=== PATIENT | male | born 1995 | race Caucasian/White ===

== ENCOUNTER 2016-07-06 07:42 | Emergency (ER) | payer BC ==
[2016-07-06 08:07] VITALS: BP 127/61
[2016-07-06] MEDS ORDERED: Sodium Chloride 0.9% 1,000 ML IV ONE (08:15)
[2016-07-06] MEDS ORDERED: Ondansetron 4 MG/2 ML SDV IVPUSH ONE (08:15)
--- NOTE | 2016-07-06 08:35 | EDM.PDOC ---
ED HPI ENT - General Chief Complaint: Fever Stated Complaint: SICK WITH FEVER Time Seen by Provider: 07/06/16 07:45 - History of Present Illness INITIAL COMMENTS - FREE TEXT/NARRATIVE: History of present illness: [20 yo male with four day history of fever, chills, productive cough, sore throat, nausea, vomiting, decreased appetite. He denies abdominal pain, dysuria , frequency, urgency, sob, wheezing, ear ache. muscle aches, syncope or other pertinent symptoms. He does not have sick contacts. He did not recieve flu vaccine. He quit smoking one month ago. He does not drink or use illicit drugs. ] Review of systems: As per history of present illness and below otherwise all systems reviewed and negative. Past medical history: As per history of present illness and as reviewed below otherwise noncontributory. Surgical history: As per history of present illness and as reviewed below otherwise noncontributory. Social history: No reported history of drug or alcohol abuse. Family history: As per history of present illness and as reviewed below otherwise noncontributory. Physical exam: General: Well developed, well nourished in NAD HEENT: Atraumatic, normocephalic, pupils reactive, negative for conjunctival pallor or scleral icterus, mucous membranes moist, throat erythema, neck supple , nontender, trachea midline. TM clear bilaterally. Lungs: Clear to auscultation, breath sounds equal bilaterally, chest nontender. Heart: S1S2, regular, negative for clicks, rubs, or JVD. Abdomen: Soft, nondistended, nontender. Negative for masses or hepatosplenomegaly. Negative for costovertebral tenderness. Pelvis: Stable nontender. Genitourinary: Deferred. Rectal: Deferred. Extremities: Atraumatic, negative for cords or calf pain. Neurovascular unremarkable. Neuro: Awake, alert, oriented. Cranial nerves II through XII unremarkable. Cerebellum unremarkable. Motor and sensory unremarkable throughout. Exam nonfocal. Diagnostics: [cbc, cmp, amylase , lipase, strep, CXR: unremarkable. ] Therapeutics: [IVF] Impression: [bronchitis] Plan: [Increase hydration Phengran with codiene for symptom relief. Advised no driving or operating machinery. f/u with PCP in 1 week.] Definitive disposition and diagnosis as appropriate pending reevaluation and review of above. - Related Data Allergies/ADRs: Allergies Allergy/AdvReac Type Severity Reaction Status Date / Time No Known Allergies Allergy Verified 07/06/16 08:03 Home Meds: Home Meds . [No Known Home Meds] 07/06/16 [History] Past Medical History HEENT History: Reports: None Cardiovascular History: Reports: None Respiratory History: Reports: None Gastrointestinal History: Reports: None Genitourinary History: Reports: None Musculoskeletal History: Reports: None Neurological History: Reports: None Psychiatric History: Reports: None Endocrine/Metabolic History: Reports: None Hematologic History: Reports: None Immunologic History: Reports: None Oncologic (Cancer) History: Reports: None Dermatologic History: Reports: None - Infectious Disease History Infectious Disease History: Reports: None - Past Surgical History HEENT Surgical History: Reports: Other (see below) Other HEENT Surgeries/Procedures: tube in ears Musculoskeletal Surgical History: Reports: Other (see below) Other Musculoskeletal Surgeries/Procedures:: right hand surgery Social & Family History - Family History Family Medical History: Noncontributory - Tobacco Use Smoking Status *Q: Former Smoker - Caffeine Use Caffeine Use: Reports: Tea - Recreational Drug Use Recreational Drug Use: No ED ROS ENT - Review of Systems Review Of Systems: See Below (See history of present illness) ED EXAM, ENT - Physical Exam Exam: See Below (See history of present illness) Course - Vital Signs Last Recorded V/S: Last Vital Signs Temp 99.8 F 07/06/16 08:04 Pulse 108 H 07/06/16 08:04 Resp 18 07/06/16 08:04 BP 127/61 07/06/16 08:04 Pulse Ox 96 07/06/16 08:04 - Orders/Labs/Meds Orders: Active Orders 24 hr Category Date Time Status CULTURE STREP A CONFIRMATION [RM] Stat Lab 07/06/16 09:05 Results STREP SCRN A RAPID W CULT CONF [RM] Stat Lab 07/06/16 09:05 Results UA W/MICROSCOPIC [URIN] Stat Lab 07/06/16 09:31 Received Labs: Laboratory Tests 07/06/16 07/06/16 Range/Units 08:27 08:27 WBC 7.00 (4.0-11.0) K/uL RBC 4.76 (4.50-5.90) M/uL Hgb 14.1 (13.0-17.0) g/dL Hct 42.0 (38.0-50.0) % MCV 88.2 (80.0-98.0) fL MCH 29.6 (27.0-32.0) pg MCHC 33.6 (31.0-37.0) g/dL RDW Std Deviation 40.6 (28.0-62.0) fl RDW Coeff of Naomi 13 (11.0-15.0) % Plt Count 128 L (150-400) K/uL MPV 10.50 (7.40-12.00) fL Neut % (Auto) 82.1 H (48.0-80.0) % Lymph % (Auto) 11.4 L (16.0-40.0) % [place] % (Auto) 6.4 (0.0-15.0) % Eos % (Auto) 0.0 (0.0-7.0) % Baso % (Auto) 0.1 (0.0-1.5) % Neut # (Auto) 5.7 (1.4-5.7) K/uL Lymph # (Auto) 0.8 (0.6-2.4) K/uL [place] # (Auto) 0.5 (0.0-0.8) K/uL Eos # (Auto) 0.0 (0.0-0.7) K/uL Baso # (Auto) 0.0 (0.0-0.1) K/uL Nucleated RBC % 0.0 /100WBC Nucleated RBCs # 0 K/uL Sodium 139 (136-146) mmol/L Potassium 4.5 (3.5-5.1) mmol/L Chloride 104 (98-110) mmol/L Carbon Dioxide 25 (21-31) mmol/L BUN 11 (6.0-23.0) mg/dL Creatinine 1.0 (0.6-1.5) mg/dL Est Cr Clr Drug Dosing 127.51 mL/min Estimated GFR (MDRD) > 60.0 ml/min Glucose 105 (60-110) mg/dL Calcium 9.3 (8.8-10.8) mg/dL Total Bilirubin 0.7 (0.1-1.5) mg/dL AST 19 (5-40) IU/L ALT 14 (8-54) IU/L Alkaline Phosphatase 68 (40-150) Total Protein 7.0 (6.0-8.0) g/dL Albumin 4.6 (3.5-5.0) g/dL Globulin 2.4 (2.0-3.5) g/dL Albumin/Globulin Ratio 1.9 (1.3-2.8) Amylase 58 (10-90) U/L Lipase 12 (7-80) U/L Meds: Medications Discontinued Medications Generic Name Dose Route Start Last Admin Trade Name Stan PRN Reason Stop Dose Admin Sodium Chloride 1,000 mls @ 999 mls/hr 07/06/16 08:15 07/06/16 08:35 Normal Saline IV 07/06/16 09:15 999 mls/hr STAT ONE Administration Ondansetron HCl 4 mg 07/06/16 08:15 07/06/16 08:35 Zofran IVPUSH 07/06/16 08:16 4 mg ONETIME ONE Administration Departure - Departure Time of Disposition: 09:42 Disposition: Home, Self-Care 01 Condition: good Clinical Impression: Bronchitis Referrals: PCP,None [Primary Care Provider] - Forms: ED Department Discharge Additional Instructions: The following information is given to patients seen in the emergency department who are being discharged to home. This information is to outline your options for follow-up care. We provide all patients seen in our emergency department with a follow-up referral. The need for follow-up, as well as the timing and circumstances, are variable depending upon the specifics of your emergency department visit. If you don't have a primary care physician on staff, we will provide you with a referral. We always advise you to contact your personal physician following an emergency department visit to inform them of the circumstance of the visit and for follow-up with them and/or the need for any referrals to a consulting specialist. The emergency department will also refer you to a specialist when appropriate. This referral assures that you have the opportunity for follow-up care with a specialist. All of these measure are taken in an effort to provide you with optimal care, which includes your follow-up. Under all circumstances we always encourage you to contact your private physician who remains a resource for coordinating your care. When calling for follow-up care, please make the office aware that this follow-up is from your recent emergency room visit. If for any reason you are refused follow-up, please contact the [facility] Emergency Department at and asked to speak to the emergency department charge nurse. - My Orders Last 24 Hours: My Active Orders 07/06/16 09:05 CULTURE STREP A CONFIRMATION [RM] Stat STREP SCRN A RAPID W CULT CONF [RM] Stat 07/06/16 09:31 UA W/MICROSCOPIC [URIN] Stat - Assessment/Plan Last 24 Hours: My Active Orders 07/06/16 09:05 CULTURE STREP A CONFIRMATION [RM] Stat STREP SCRN A RAPID W CULT CONF [RM] Stat 07/06/16 09:31 UA W/MICROSCOPIC [URIN] Stat
[2016-07-06 09:02] LABS: CHLORIDE,CL 104 mmol/L (98-110); SODIUM,NA 139 mmol/L (136-146)
--- NOTE | 2016-07-06 09:34 | CR ---
EXAMINATION: Two-view chest (PA and Lateral views). HISTORY: Cough and fever. FINDINGS: The trachea is midline. The cardiomediastinal silhouette is within normal limits. No pulmonary infil trates, effusions or pneumothorax. Osseous structures appear unremarkable. IMPRESSION: No acute cardiopulmonary process.
== END 2016-07-06 09:52 | disposition home or self-care (01) ==
LOC: MW.ED 07:42
DX: J40 Bronchitis, not specified as acute or chronic (principal); Z87.891 Personal history of nicotine dependence
CPT/HCPCS: 36415; 71020; 80053; 81001; 82150; 83690; 85025; 87081; 87880; 96361; 96374; 99283; J2405; J7040; 99284

== ENCOUNTER 2017-02-21 10:56 | Emergency (ER) | payer BC ==
[2017-02-21] MEDS ORDERED: Ketorolac 60 MG/2 ML SDV IM ONE (11:09)
[2017-02-21] MEDS ORDERED: cefTRIAXone 1,000 MG in Lidocaine 1% 1 ML IM ONE (11:09)
[2017-02-21] MEDS ORDERED: Acetaminophen/HYDROcodone 325-5 MG Tab PO ONE (11:15)
--- NOTE | 2017-02-21 11:17 | EDM.PDOC ---
ED HPI GENERAL MEDICAL PROBLEM - General Chief Complaint: ENT Problem Stated Complaint: ORAL ISSUES Time Seen by Provider: 02/21/17 11:13 Source of Information: Reports: Patient History Limitations: Reports: No Limitations - History of Present Illness INITIAL COMMENTS - FREE TEXT/NARRATIVE: History of present illness: [21-year-old male comes in complaining of a pain in his jaw status post wisdom tooth extraction. The clot to his left lower jaw had been dislodged and subsequently now patient is presenting with the beginnings of a dry socket. Patient indicates there had been a bit of an infection in the area prior to the surgical extraction but that the extraction helped significantly and things were improving and progressing until last night when the clot became dislodged and this morning he woke in debilitating pain.] Review of systems: As per history of present illness and below otherwise all systems reviewed and negative. Past medical history: As per history of present illness and as reviewed below otherwise noncontributory. Surgical history: As per history of present illness and as reviewed below otherwise noncontributory. Social history: No reported history of drug or alcohol abuse. Family history: As per history of present illness and as reviewed below otherwise noncontributory. Physical exam: HEENT: Atraumatic, normocephalic, pupils reactive, negative for conjunctival pallor or scleral icterus, mucous membranes moist, throat clear, neck supple, nontender, trachea midline. Lungs: Clear to auscultation, breath sounds equal bilaterally, chest nontender. Heart: S1S2, regular, negative for clicks, rubs, or JVD. Abdomen: Soft, nondistended, nontender. Negative for masses or hepatosplenomegaly. Negative for costovertebral tenderness. Pelvis: Stable nontender. Genitourinary: Deferred. Rectal: Deferred. Extremities: Atraumatic, negative for cords or calf pain. Neurovascular unremarkable. Neuro: Awake, alert, oriented. Cranial nerves II through XII unremarkable. Cerebellum unremarkable. Motor and sensory unremarkable throughout. Exam nonfocal. Assessment is benign save the subjective complaint complaint as noted in the history of present illness and the obvious open gum in the left lower jaw without presence of a clot noted in the socket. Diagnostics: [] Therapeutics: [Toradol, Rocephin, Vicodin] Impression: [Dry socket] Plan: [Antibiotics per dentist and brief run of pain medicine] Definitive disposition and diagnosis as appropriate pending reevaluation and review of above. Left Lower Tooth/Teeth Pain Score (Numeric/FACES): 8 - Related Data Allergies Allergy/AdvReac Type Severity Reaction Status Date / Time No Known Allergies Allergy Verified 02/21/17 11:00 Home Meds: Home Meds Clindamycin HCl 300 mg PO Q6HR 02/21/17 [History] Ibuprofen 200 mg PO Q6HR 02/21/17 [History] Past Medical History HEENT History: Reports: None Cardiovascular History: Reports: None Respiratory History: Reports: None Gastrointestinal History: Reports: None Genitourinary History: Reports: None Musculoskeletal History: Reports: None Neurological History: Reports: None Psychiatric History: Reports: None Endocrine/Metabolic History: Reports: None Hematologic History: Reports: None Immunologic History: Reports: None Oncologic (Cancer) History: Reports: None Dermatologic History: Reports: None - Infectious Disease History Infectious Disease History: Reports: Chicken Pox - Past Surgical History Head Surgeries/Procedures: Reports: None HEENT Surgical History: Reports: Other (See Below) Other HEENT Surgeries/Procedures: wisdom tooth extraction Cardiovascular Surgical History: Reports: None Respiratory Surgical History: Reports: None GI Surgical History: Reports: None Male Surgical History: Reports: None Musculoskeletal Surgical History: Reports: Other (See Below) Social & Family History - Family History Family Medical History: Noncontributory - Tobacco Use Smoking Status *Q: Current Every Day Smoker Years of Tobacco use: 2 Packs/Tins Daily: 0.5 - Caffeine Use Caffeine Use: Reports: None - Recreational Drug Use Recreational Drug Use: No ED ROS GENERAL - Review of Systems Review Of Systems: See Below (History of present illness) ED EXAM, GENERAL - Physical Exam Exam: See Below (History of present illness) Course - Vital Signs Last Recorded V/S: Last Vital Signs Temp 36.7 C 02/21/17 11:01 Pulse 86 02/21/17 11:01 Resp 16 02/21/17 11:01 BP 131/60 02/21/17 11:01 Pulse Ox 98 02/21/17 11:01 - Orders/Labs/Meds Meds: Medications Discontinued Medications Generic Name Dose Route Start Last Admin Trade Name Freq PRN Reason Stop Dose Admin Ceftriaxone Sodium 1,000 mg/ 1 mls @ 1 mls/sec 02/21/17 11:09 Lidocaine HCl IM 02/21/17 11:10 ONETIME ONE Ketorolac Tromethamine 60 mg 02/21/17 11:09 Toradol IM 02/21/17 11:10 ONETIME ONE Departure - Departure Time of Disposition: 11:16 Disposition: Home, Self-Care 01 Condition: Good Clinical Impression: Dry tooth socket - Discharge Information Referrals: PCP,None [Primary Care Provider] - Additional Instructions: The following information is given to patients seen in the emergency department who are being discharged to home. This information is to outline your options for follow-up care. We provide all patients seen in our emergency department with a follow-up referral. The need for follow-up, as well as the timing and circumstances, are variable depending upon the specifics of your emergency department visit. If you don't have a primary care physician on staff, we will provide you with a referral. We always advise you to contact your personal physician following an emergency department visit to inform them of the circumstance of the visit and for follow-up with them and/or the need for any referrals to a consulting specialist. The emergency department will also refer you to a specialist when appropriate. This referral assures that you have the opportunity for follow-up care with a specialist. All of these measure are taken in an effort to provide you with optimal care, which includes your follow-up. Under all circumstances we always encourage you to contact your private physician who remains a resource for coordinating your care. When calling for follow-up care, please make the office aware that this follow-up is from your recent emergency room visit. If for any reason you are refused follow-up, please contact the [facility] Emergency Department at and asked to speak to the emergency department charge nurse. Take medication as directed All up with your dentist as needed return to ED as needed as discussed
[2017-02-21 11:55] VITALS: BP 108/58
== END 2017-02-21 11:53 | disposition home or self-care (01) ==
LOC: MW.ED 10:56
DX: M27.3 Alveolitis of jaws (principal); F17.210 Nicotine dependence, cigarettes, uncomplicated
CPT/HCPCS: 96372; 99282; A9270; J0696; J1885; 99283

== ENCOUNTER 2017-02-26 18:00 | Emergency (ER) | payer BC ==
--- NOTE | 2017-02-26 18:11 | EDM.PDOC ---
ED HPI GENERAL MEDICAL PROBLEM - General Chief Complaint: ENT Problem Stated Complaint: TOOTH PAIN Time Seen by Provider: 02/26/17 18:03 Source of Information: Reports: Patient History Limitations: Reports: No Limitations - History of Present Illness INITIAL COMMENTS - FREE TEXT/NARRATIVE: HISTORY AND PHYSICAL: Dental pain History of present illness: Patient is a 21-year-old male who presents to the emergency room with complaints of right lower dental pain/abscess. He reports that he woke up this morning with right lower facial swelling and could feel "an abscess" along the # 30. Recorded a fever of 100.8F. On 02/21/17 he was evaluated in the emergency room and diagnosed with a dry socket post was sent to the extraction. He was given 1 g Rocephin IM, Toradol IM, 2 tabs at home or go prior to discharge. He received 20 tabs Una upon discharge. States he has been taking his Una but feels nauseous and is unhappy with the way this medication is making him feel. Does not have good pain management at this time. Saw Dr. Bermudez on 02/24/2017 for the "dry socket" and reports that he was cleared. Review of systems: As per history of present illness and below otherwise all systems reviewed and negative. Past medical history: As per history of present illness and as reviewed below otherwise noncontributory. Surgical history: As per history of present illness and as reviewed below otherwise noncontributory. Social history: No reported history of drug or alcohol abuse. Family history: As per history of present illness and as reviewed below otherwise noncontributory. Physical exam: Gen.: Nontoxic-appearing 30-year-old male. Well-developed and well-nourished Alert and oriented. HEENT: Atraumatic, normocephalic, pupils reactive, negative for conjunctival pallor or scleral icterus, mucous membranes moist, small firm lump noted 2 to 3: 30 of the right lower jaw -tender to touch. His throat is throat clear, neck supple, nontender, trachea midline. Lungs: Clear to auscultation, breath sounds equal bilaterally, chest nontender. Heart: S1S2, regular rate and rhythm Abdomen: Soft, nondistended, nontender. Negative for masses or hepatosplenomegaly. Negative for costovertebral tenderness. Pelvis: Stable nontender. Genitourinary: Deferred. Rectal: Deferred. Extremities: Atraumatic, negative for cords or calf pain. Neurovascular unremarkable. Neuro: Awake, alert, oriented. Cranial nerves II through XII unremarkable. Cerebellum unremarkable. Motor and sensory unremarkable throughout. Exam nonfocal. Diagnostics: [] Therapeutics: Toradol, dental balls Impression: Dental abscess Plan: 1. Take the new medication as prescribed. The tramadol may be used for nighttime use, as this may cause drowsiness. Do not take this medication while driving or needing to be functioning. Cataflam as an anti-inflammatory which will help with swelling at the site. Do not take this medication with any additional NSAIDs such as ibuprofen or Aleve. You may take your Una as you had previously prescribed as desired. Keep in mind this medication is also necrotic subcutaneous do not take it while needing to be functioning or driving. 2. Dental balls have been given to, take these as we discussed. 3. Follow-up with your dentist. He may try Romy Teague in [facility]. Return to the ED as needed and as discussed. Definitive disposition and diagnosis as appropriate pending reevaluation and review of above. Onset: Today right lower dental Pain Score (Numeric/FACES): 6 - Related Data Allergies Allergy/AdvReac Type Severity Reaction Status Date / Time No Known Allergies Allergy Verified 02/26/17 18:06 Home Meds: Home Meds Ibuprofen 200 mg PO Q6HR 02/21/17 [History] Acetaminophen/HYDROcodone [Una 325-7.5 MG] 1 tab PO Q4H 02/26/17 [History] Celecoxib [CeleBREX] 02/26/17 [History] Past Medical History HEENT History: Reports: None Cardiovascular History: Reports: None Respiratory History: Reports: None Gastrointestinal History: Reports: None Genitourinary History: Reports: None Musculoskeletal History: Reports: None Neurological History: Reports: None Psychiatric History: Reports: None Endocrine/Metabolic History: Reports: None Hematologic History: Reports: None Immunologic History: Reports: None Oncologic (Cancer) History: Reports: None Dermatologic History: Reports: None - Infectious Disease History Infectious Disease History: Reports: Chicken Pox - Past Surgical History Head Surgeries/Procedures: Reports: None HEENT Surgical History: Reports: Other (See Below) Other HEENT Surgeries/Procedures: wisdom tooth extraction Cardiovascular Surgical History: Reports: None Respiratory Surgical History: Reports: None GI Surgical History: Reports: None Male Surgical History: Reports: None Musculoskeletal Surgical History: Reports: Other (See Below) Social & Family History - Family History Family Medical History: Noncontributory - Tobacco Use Smoking Status *Q: Current Every Day Smoker Years of Tobacco use: 2 Packs/Tins Daily: 0.5 - Caffeine Use Caffeine Use: Reports: None - Recreational Drug Use Recreational Drug Use: No ED ROS ENT - Review of Systems Review Of Systems: ROS reveals no pertinent complaints other than HPI. ED EXAM, ENT - Physical Exam Exam: See Below (See dictation) Course - Vital Signs Last Recorded V/S: Last Vital Signs Temp 36.7 C 02/26/17 18:07 Pulse 96 02/26/17 18:07 Resp 18 02/26/17 18:07 BP 122/75 02/26/17 18:07 Pulse Ox 98 02/26/17 18:07 - Orders/Labs/Meds Meds: Medications Discontinued Medications Generic Name Dose Route Start Last Admin Trade Name Stan PRN Reason Stop Dose Admin Benzocaine 2 each 02/26/17 18:25 Hurricaine One 20% MUCMEM 02/26/17 18:26 ONETIME ONE Ketorolac Tromethamine 60 mg 02/26/17 18:24 Toradol IM 02/26/17 18:25 ONETIME ONE Lidocaine HCl 15 ml 02/26/17 18:25 Xylocaine 2% Viscous PO 02/26/17 18:26 ONETIME ONE Departure - Departure Time of Disposition: 18:38 Disposition: Home, Self-Care 01 Condition: Good Clinical Impression: Dental abscess - Discharge Information Referrals: PCP,None [Primary Care Provider] - Forms: ED Department Discharge Additional Instructions: My general discharge The following information is given to patients seen in the emergency department who are being discharged to home. This information is to outline your options for follow-up care. We provide all patients seen in our emergency department with a follow-up referral. The need for follow-up, as well as the timing and circumstances, are variable depending upon the specifics of your emergency department visit. If you don't have a primary care physician on staff, we will provide you with a referral. We always advise you to contact your personal physician following an emergency department visit to inform them of the circumstance of the visit and for follow-up with them and/or the need for any referrals to a consulting specialist. The emergency department will also refer you to a specialist when appropriate. This referral assures that you have the opportunity for follow-up care with a specialist. All of these measure are taken in an effort to provide you with optimal care, which includes your follow-up. Under all circumstances we always encourage you to contact your private physician who remains a resource for coordinating your care. When calling for follow-up care, please make the office aware that this follow-up is from your recent emergency room visit. If for any reason you are refused follow-up, please contact the [facility] Emergency Department at and asked to speak to the emergency department charge nurse. [facility] Primary [facility] [address] [place] [id number] 1. Take the new medication as prescribed. The tramadol may be used for nighttime use, as this may cause drowsiness. Do not take this medication while driving or needing to be functioning. Cataflam as an anti-inflammatory which will help with swelling at the site. Do not take this medication with any additional NSAIDs such as ibuprofen or Aleve. You may take your Una as you had previously prescribed as desired. Keep in mind this medication is also necrotic subcutaneous do not take it while needing to be functioning or driving. 2. Dental balls have been given to, take these as we discussed. 3. Follow-up with your dentist. He may try Romy Teague in [facility]. Return to the ED as needed and as discussed.
[2017-02-26] MEDS ORDERED: Ketorolac 60 MG/2 ML SDV IM ONE (18:24)
[2017-02-26] MEDS ORDERED: Benzocaine 20% Topical Spray UD MUCMEM ONE (18:25)
[2017-02-26] MEDS ORDERED: Lidocaine 2% Viscous Solution 15 ML Cup PO ONE (18:25)
[2017-02-26 18:55] VITALS: BP 122/68
== END 2017-02-26 18:52 | disposition home or self-care (01) ==
LOC: MW.ED 18:00
DX: K04.7 Periapical abscess without sinus (principal)
CPT/HCPCS: 96372; 99282; A9270; J1885; 99283

== ENCOUNTER 2017-04-04 00:54 | Emergency (ER) | payer BC ==
[2017-04-04] MEDS ORDERED: Albuterol/Ipratropium 3.0-0.5 MG/3 ML Neb Soln NEB ONE (01:10)
--- NOTE | 2017-04-04 02:33 | EDM.PDOC ---
ED HPI GENERAL MEDICAL PROBLEM - General Chief Complaint: Respiratory Problem Stated Complaint: COLD Time Seen by Provider: 04/04/17 02:27 - History of Present Illness INITIAL COMMENTS - FREE TEXT/NARRATIVE: HISTORY AND PHYSICAL: History of present illness: Patient 21-year-old white male presents with concern of cough 710 days requests Phenergan with codeine he was prescribed this prior. Additional fever chills nausea vomiting or other complaints Review of systems: As per history of present illness and below otherwise all systems reviewed and negative. Past medical history: As per history of present illness and as reviewed below otherwise noncontributory. Surgical history: As per history of present illness and as reviewed below otherwise noncontributory. Social history: No reported history of drug or alcohol abuse. Family history: As per history of present illness and as reviewed below otherwise noncontributory. Physical exam: HEENT: Atraumatic, normocephalic, pupils reactive, negative for conjunctival pallor or scleral icterus, mucous membranes moist, throat clear, neck supple, nontender, trachea midline. Lungs: Clear to auscultation, breath sounds equal bilaterally, chest nontender. Heart: S1S2, regular, negative for clicks, rubs, or JVD. Abdomen: Soft, nondistended, nontender. Negative for masses or hepatosplenomegaly. Negative for costovertebral tenderness. Pelvis: Stable nontender. Genitourinary: Deferred. Rectal: Deferred. Extremities: Atraumatic, negative for cords or calf pain. Neurovascular unremarkable. Neuro: Awake, alert, oriented. Cranial nerves II through XII unremarkable. Cerebellum unremarkable. Motor and sensory unremarkable throughout. Exam nonfocal. Diagnostics: Influenza screen chest x-ray CBC Therapeutics: None Impression: #1 tracheobronchitis Definitive disposition and diagnosis as appropriate pending reevaluation and review of above. - Related Data Allergies Allergy/AdvReac Type Severity Reaction Status Date / Time No Known Allergies Allergy Verified 02/26/17 18:06 Home Meds: Home Meds . [No Known Home Meds] 04/04/17 [History] Past Medical History HEENT History: Reports: None Cardiovascular History: Reports: None Respiratory History: Reports: None Gastrointestinal History: Reports: None Genitourinary History: Reports: None Musculoskeletal History: Reports: None Neurological History: Reports: None Psychiatric History: Reports: None Endocrine/Metabolic History: Reports: None Hematologic History: Reports: None Immunologic History: Reports: None Oncologic (Cancer) History: Reports: None Dermatologic History: Reports: None - Infectious Disease History Infectious Disease History: Reports: Chicken Pox - Past Surgical History Head Surgeries/Procedures: Reports: None HEENT Surgical History: Reports: Myringotomy w Tube(s), Other (See Below) Other HEENT Surgeries/Procedures: wisdom tooth extraction Cardiovascular Surgical History: Reports: None Respiratory Surgical History: Reports: None GI Surgical History: Reports: None Male Surgical History: Reports: None Musculoskeletal Surgical History: Reports: Other (See Below) Other Musculoskeletal Surgeries/Procedures:: surgery to right hand Social & Family History - Family History Family Medical History: Noncontributory - Tobacco Use Smoking Status *Q: Current Every Day Smoker Years of Tobacco use: 2 Packs/Tins Daily: 0.3 - Caffeine Use Caffeine Use: Reports: None - Recreational Drug Use Recreational Drug Use: No ED ROS GENERAL - Review of Systems Review Of Systems: ROS reveals no pertinent complaints other than HPI. ED EXAM, GENERAL - Physical Exam Exam: See Below (See dictation) Course - Vital Signs Last Recorded V/S: Last Vital Signs Temp 36.3 C 04/04/17 01:05 Pulse 103 H 04/04/17 01:05 Resp 14 04/04/17 01:05 BP 147/80 H 04/04/17 01:05 Pulse Ox 96 04/04/17 01:05 - Orders/Labs/Meds Orders: Active Orders 24 hr Category Date Time Status RT Aerosol Therapy [RC] ASDIRECTED Care 04/04/17 01:10 Active Chest 2V [CR] Stat Exams 04/04/17 01:11 Taken Labs: Laboratory Tests 04/04/17 Range/Units 01:20 WBC 8.24 (4.0-11.0) K/uL RBC 5.38 (4.50-5.90) M/uL Hgb 16.2 (13.0-17.0) g/dL Hct 46.6 (38.0-50.0) % MCV 86.6 (80.0-98.0) fL MCH 30.1 (27.0-32.0) pg MCHC 34.8 (31.0-37.0) g/dL RDW Std Deviation 38.5 (28.0-62.0) fl RDW Coeff of Naomi 12 (11.0-15.0) % Plt Count 181 (150-400) K/uL MPV 10.50 (7.40-12.00) fL Neut % (Auto) 52.1 (48.0-80.0) % Lymph % (Auto) 33.7 (16.0-40.0) % Calloway % (Auto) 10.3 (0.0-15.0) % Eos % (Auto) 3.5 (0.0-7.0) % Baso % (Auto) 0.4 (0.0-1.5) % Neut # (Auto) 4.3 (1.4-5.7) K/uL Lymph # (Auto) 2.8 H (0.6-2.4) K/uL Calloway # (Auto) 0.9 H (0.0-0.8) K/uL Eos # (Auto) 0.3 (0.0-0.7) K/uL Baso # (Auto) 0.0 (0.0-0.1) K/uL Meds: Medications Discontinued Medications Generic Name Dose Route Start Last Admin Trade Name Freq PRN Reason Stop Dose Admin Albuterol/Ipratropium 3 ml 04/04/17 01:10 04/04/17 01:20 Duoneb 3.0-0.5 Mg/3 Ml NEB 04/04/17 01:11 3 ml ONETIME ONE Administration Departure - Departure Time of Disposition: 02:32 Disposition: Home, Self-Care 01 Condition: Good Clinical Impression: Tracheobronchitis - Discharge Information Referrals: PCP,None [Primary Care Provider] - Additional Instructions: The following information is given to patients seen in the emergency department who are being discharged to home. This information is to outline your options for follow-up care. We provide all patients seen in our emergency department with a follow-up referral. The need for follow-up, as well as the timing and circumstances, are variable depending upon the specifics of your emergency department visit. If you don't have a primary care physician on staff, we will provide you with a referral. We always advise you to contact your personal physician following an emergency department visit to inform them of the circumstance of the visit and for follow-up with them and/or the need for any referrals to a consulting specialist. The emergency department will also refer you to a specialist when appropriate. This referral assures that you have the opportunity for followup care with a specialist. All of these measure are taken in an effort to provide you with optimal care, which includes your followup. Under all circumstances we always encourage you to contact your private physician who remains a resource for coordinating your care. When calling for followup care, please make the office aware that this follow-up is from your recent emergency room visit. If for any reason you are refused follow-up, please contact the [facility] emergency department at and asked to speak to the emergency department charge nurse. [facility] [address] [place] [address] Albuterol as prescribed follow-up primary medical doctor 1-2 days return as needed as discussed - My Orders Last 24 Hours: My Active Orders 04/04/17 01:10 RT Aerosol Therapy [RC] ASDIRECTED 04/04/17 01:11 Chest 2V [CR] Stat - Assessment/Plan Last 24 Hours: My Active Orders 04/04/17 01:10 RT Aerosol Therapy [RC] ASDIRECTED 04/04/17 01:11 Chest 2V [CR] Stat
[2017-04-04 02:58] VITALS: BP 119/78
--- NOTE | 2017-04-06 14:50 | CR ---
EXAM DATE: 04/04/17 PATIENT'S AGE: 21 Patient: MARTINA ANGEL Facility: [place], [place] Site . Site : 1995 Study: XRay Chest [id number]/24/2017 1:44:20 AM Ordering Physician: Doctor Villatoro Final Report: INDICATION: COUGH FOR 3 WEEKS. TECHNIQUE: Chest 2 views COMPARISON: July 06, 2016 FINDINGS: Cardiovascular and mediastinum: Heart size and vasculature are normal in caliber and appearance. Mediastinum is within normal limits. Lungs and pleural spaces: No focal consolidation. No sign of pleural effusion. No pneumothorax. Bones and soft tissues: No significant findings. IMPRESSION: No acute cardiopulmonary disease Dictated by Prasanth Guerin MD @ 04/04/2017 2:12:52 AM Dictated by: Prasanth Guerin MD @ 04/04/2017 02:13:09 (Electronic Signature) Report Signed by Proxy. MTDWarren
== END 2017-04-04 03:02 | disposition home or self-care (01) ==
LOC: MW.ED 00:54
DX: J40 Bronchitis, not specified as acute or chronic (principal); F17.210 Nicotine dependence, cigarettes, uncomplicated
CPT/HCPCS: 36415; 71020; 71020-26; 85025; 87804; 94640; 99283; 99284-25

== ENCOUNTER 2017-10-01 04:00 | Emergency (ER) | payer BC ==
--- NOTE | 2017-10-01 04:22 | EDM.PDOC ---
ED HPI GENERAL MEDICAL PROBLEM - General Chief Complaint: Genitourinary Problem Stated Complaint: PAIN IN GROIN AREA Time Seen by Provider: 10/01/17 04:22 Source of Information: Reports: Patient History Limitations: Reports: No Limitations - History of Present Illness INITIAL COMMENTS - FREE TEXT/NARRATIVE: HISTORY AND PHYSICAL: History of present illness: 42-year-old male presenting emergency department with chief complaint of right testicular pain starting yesterday at around 2 PM. Patient states around 2 PM she had right stabbing right testicular pain. Seemed to improve over time however at approximately 1 AM this morning he began to have worsening pain. He also had episode of near syncope associated with this pain. Pain currently is a better but secondary to one of his workers talking to him about testicular torsion he became more concerned and came to the emergency room for further evaluation. When asked he does believe that the right testicle is somewhat raised compared to the left. Pain is more of a shooting intermetent pain that originates sometime in the right testical and ascends into the right groin but also sometimes originates in the right groin and descends. He denies any recent STDs, penile drainage, discharge, rash, or trauma. Otherwise patient is generally healthy with no medical allergies and takes no medications on a daily basis. Denies any fever, chills, nausea or vomiting. Testicular exam: No significant abnormalities found bilaterally, testicles are both non-high riding, nontender, no acute scrotal swelling, positive cremasteric reflex, negative for blue dot sign, no evidence of inguinal hernia on exam of inguinal canal. Review of systems: As per history of present illness and below otherwise all systems reviewed and negative. Past medical history: As per history of present illness and as reviewed below otherwise noncontributory. Surgical history: As per history of present illness and as reviewed below otherwise noncontributory. Social history: No reported history of drug or alcohol abuse. Family history: As per history of present illness and as reviewed below otherwise noncontributory. Physical exam: HEENT: Atraumatic, normocephalic, pupils reactive, negative for conjunctival pallor or scleral icterus, mucous membranes moist, throat clear, neck supple, nontender, trachea midline. Lungs: Clear to auscultation, breath sounds equal bilaterally, chest nontender. Heart: S1S2, regular, negative for clicks, rubs, or JVD. Abdomen: Soft, nondistended, nontender. Negative for masses or hepatosplenomegaly. Negative for costovertebral tenderness. Pelvis: Stable nontender. Genitourinary: Deferred. Rectal: Deferred. Extremities: Atraumatic, negative for cords or calf pain. Neurovascular unremarkable. Neuro: Awake, alert, oriented. Cranial nerves II through XII unremarkable. Cerebellum unremarkable. Motor and sensory unremarkable throughout. Exam nonfocal. Diagnostics: UA/UC, gonorrhea/Chlamydia, right testicular ultrasound Doppler Therapeutics: Impression: Acute right testicular pain intermittent Nerve impingement Plan: Urinalysis as well as right testicular ultrasound was unremarkable. Patient does work out quite often states that he was lifting recently and may have pulled something. May have some referred pain from a pinched nerve. Instructed patient to take some ibuprofen for pain and inflammation. As above I do not appreciate any significant findings on exam and all labs were negative. Gonorrhea/Chlamydia were pending upon discharge but patient low risk as he is not had sexual intercourse for some time greater than a month and uses protection. Patient was discharged in good condition with instructions to follow -up with [facility] care provider and return to emergency department if he had any new or worsening symptoms. testicle Pain Score (Numeric/FACES): 5 - Related Data Allergies Allergy/AdvReac Type Severity Reaction Status Date / Time No Known Allergies Allergy Verified 10/01/17 04:10 Home Meds: Home Meds . [No Known Home Meds] 04/04/17 [History] Past Medical History HEENT History: Reports: None Cardiovascular History: Reports: None Respiratory History: Reports: None Gastrointestinal History: Reports: None Genitourinary History: Reports: None Musculoskeletal History: Reports: None Neurological History: Reports: None Psychiatric History: Reports: None Endocrine/Metabolic History: Reports: None Hematologic History: Reports: None Immunologic History: Reports: None Oncologic (Cancer) History: Reports: None Dermatologic History: Reports: None - Infectious Disease History Infectious Disease History: Reports: Chicken Pox - Past Surgical History Head Surgeries/Procedures: Reports: None HEENT Surgical History: Reports: Myringotomy w Tube(s), Other (See Below) Other HEENT Surgeries/Procedures: wisdom tooth extraction Cardiovascular Surgical History: Reports: None Respiratory Surgical History: Reports: None GI Surgical History: Reports: None Male Surgical History: Reports: None Musculoskeletal Surgical History: Reports: Other (See Below) Other Musculoskeletal Surgeries/Procedures:: surgery to right hand Social & Family History - Family History Family Medical History: Noncontributory - Tobacco Use Smoking Status *Q: Never Smoker - Caffeine Use Caffeine Use: Reports: None - Recreational Drug Use Recreational Drug Use: No ED ROS GENERAL - Review of Systems Review Of Systems: ROS reveals no pertinent complaints other than HPI. ED EXAM, GENERAL - Physical Exam Exam: See Below Course - Vital Signs Last Recorded V/S: Last Vital Signs Temp 97.7 F 10/01/17 04:00 Pulse 72 10/01/17 04:00 Resp 16 10/01/17 04:00 BP 128/74 10/01/17 04:00 Pulse Ox 98 10/01/17 04:00 - Orders/Labs/Meds Orders: Active Orders 24 hr Category Date Time Status Scrotal Duplex Ltd [US] Routine Exams 10/01/17 Taken Testicular US [Scrotum and Contents] [US] Stat Exams 10/01/17 04:36 Taken CHLAMYDIA AND GONORRHEA BY TMA Stat Lab 10/01/17 04:20 Received CULTURE URINE [RM] Stat Lab 10/01/17 04:20 Ordered URINALYSIS W/MICROSCOPIC [UA W/MICROSCOPIC] [URIN] Stat Lab 10/01/17 04:20 Ordered Labs: Laboratory Tests 10/01/17 Range/Units 04:20 Urine Color YELLOW Urine Appearance CLEAR Urine pH 5.5 (5.0-8.0) Ur Specific Kendall <= 1.005 (1.001-1.035) Urine Protein NEGATIVE (NEGATIVE) mg/dL Urine Glucose (UA) NEGATIVE (NEGATIVE) mg/dL Urine Ketones NEGATIVE (NEGATIVE) mg/dL Urine Occult Blood NEGATIVE (NEGATIVE) Urine Nitrite NEGATIVE (NEGATIVE) Urine Bilirubin NEGATIVE (NEGATIVE) Urine Urobilinogen 0.2 (<2.0) EU/dL Ur Leukocyte Esterase NEGATIVE (NEGATIVE) Urine RBC NONE SEEN (0-2/HPF) Urine WBC 0-1 (0-5/HPF) Ur Epithelial Cells NOT SEEN (NONE-FEW) Urine Bacteria RARE (NEGATIVE) Departure - Departure Time of Disposition: 05:47 Disposition: Home, Self-Care 01 Condition: Good Clinical Impression: Right testicular pain - Discharge Information Referrals: PCP,None [Primary Care Provider] - Forms: ED Department Discharge Additional Instructions: My general discharge The following information is given to patients seen in the emergency department who are being discharged to home. This information is to outline your options for follow-up care. We provide all patients seen in our emergency department with a follow-up referral. The need for follow-up, as well as the timing and circumstances, are variable depending upon the specifics of your emergency department visit. If you don't have a primary care physician on staff, we will provide you with a referral. We always advise you to contact your personal physician following an emergency department visit to inform them of the circumstance of the visit and for follow-up with them and/or the need for any referrals to a consulting specialist. The emergency department will also refer you to a specialist when appropriate. This referral assures that you have the opportunity for follow-up care with a specialist. All of these measure are taken in an effort to provide you with optimal care, which includes your follow-up. Under all circumstances we always encourage you to contact your private physician who remains a resource for coordinating your care. When calling for follow-up care, please make the office aware that this follow-up is from your recent emergency room visit. If for any reason you are refused follow-up, please contact the [facility] Emergency Department at and asked to speak to the emergency department charge nurse. [facility] [address] [place] [id number] [place] [address] 1. Take ibuprofen up to 3000 mg a day for pain and inflammation. 2. Follow-up with primary care provider with one of the numbers above. Be sure to tell them they were recently seen in the emergency department and they requested that you follow-up as soon as possible. 3. Return to emergency department if any new or worsening symptoms. - My Orders Last 24 Hours: My Active Orders 10/01/17 Scrotal Duplex Ltd [US] Routine 10/01/17 04:20 CHLAMYDIA AND GONORRHEA BY TMA Stat CULTURE URINE [RM] Stat URINALYSIS W/MICROSCOPIC [UA W/MICROSCOPIC] [URIN] Stat 10/01/17 04:36 Testicular US [Scrotum and Contents] [US] Stat - Assessment/Plan Last 24 Hours: My Active Orders 10/01/17 Scrotal Duplex Ltd [US] Routine 10/01/17 04:20 CHLAMYDIA AND GONORRHEA BY TMA Stat CULTURE URINE [RM] Stat URINALYSIS W/MICROSCOPIC [UA W/MICROSCOPIC] [URIN] Stat 10/01/17 04:36 Testicular US [Scrotum and Contents] [US] Stat
[2017-10-01 05:54] VITALS: BP 112/66
--- NOTE | 2017-10-01 16:41 | US ---
EXAM DATE: 10/01/17 PATIENT'S AGE: 22 Patient: MARTINA ANGEL Facility: [place], [place] Site . Site : 1995 Study: US Testicle Bilateral [id number]/22/2018 5:22:50 AM Ordering Physician: Ignacio Null Final Report: INDICATION: Right testicle pain for 1 day TECHNIQUE: Ultrasound scrotum and contents. Real-time wooten scale sonographic images with spectral and color Doppler imaging of the testicles were obtained. COMPARISON: None FINDINGS: Right testis: 4.8 x 2.7 x 3.3 cm. The right testis is appearance and echotexture. Normal arterial and venous blood flow seen in the right testis. Left testis: 5 x 2.4 x 3.3 cm. The left testis is appearance and echotexture. Normal arterial and venous blood flow seen in the left testis. Epididymis: The epididymis are unremarkable in size and echogenicity bilaterally. Normal and symmetric blood flow seen in the epididymis. Soft tissue: No significant hydrocele or varicocele noted. No adenopathy is seen. IMPRESSION: 1. Unremarkable scrotal ultrasound. Dictated by Mika Bird MD @ 10/01/2017 5:30:29 AM Dictated by: Mika Bird MD @ 10/01/2017 05:30:33 (Electronic Signature) Report Signed by Proxy. JUSTIN
--- NOTE | 2017-10-01 16:41 | US ---
EXAM DATE: 10/01/17 PATIENT'S AGE: 22 Patient: MARTINA ANGEL Facility: [place], [place] Site . Site : 1995 Study: US Testicle Bilateral [id number]/22/2018 5:22:50 AM Ordering Physician: Igncaio Null Final Report: INDICATION: Right testicle pain for 1 day TECHNIQUE: Ultrasound scrotum and contents. Real-time wooten scale sonographic images with spectral and color Doppler imaging of the testicles were obtained. COMPARISON: None FINDINGS: Right testis: 4.8 x 2.7 x 3.3 cm. The right testis is appearance and echotexture. Normal arterial and venous blood flow seen in the right testis. Left testis: 5 x 2.4 x 3.3 cm. The left testis is appearance and echotexture. Normal arterial and venous blood flow seen in the left testis. Epididymis: The epididymis are unremarkable in size and echogenicity bilaterally. Normal and symmetric blood flow seen in the epididymis. Soft tissue: No significant hydrocele or varicocele noted. No adenopathy is seen. IMPRESSION: 1. Unremarkable scrotal ultrasound. Dictated by Mika Bird MD @ 10/01/2017 5:30:29 AM Dictated by: Mika Bird MD @ 10/01/2017 05:30:33 (Electronic Signature) Report Signed by Proxy. JUSTIN
== END 2017-10-01 06:04 | disposition home or self-care (01) ==
LOC: MW.ED 04:00
DX: N50.811 Right testicular pain (principal)
CPT/HCPCS: 76870; 76870-26; 81001; 87086; 87491; 87591; 93976; 93976-26; 99284-25

== ENCOUNTER 2020-11-02 20:33 | Emergency (ER) | payer BC ==
--- NOTE | 2020-11-02 22:17 | EDM.PDOC ---
ED HPI GENERAL MEDICAL PROBLEM - General Chief Complaint: General Stated Complaint: FEELING DIZZY AND PRESSURE IN HEAD Time Seen by Provider: 11/02/20 21:35 Source of Information: Reports: Patient History Limitations: Reports: No Limitations - History of Present Illness INITIAL COMMENTS - FREE TEXT/NARRATIVE: Is a 25-year-old male with a history of hypogonadism on testosterone presents today for sensation to he had a hot flash feeling started in his chest when of his head. Denies any chest pain fever chills but said he just felt kind of drowsy today and his colleague at work said that he looked very flushed and red. Currently has no symptoms right now. He did mention that occasionally he feels a having palpitations but denies any chest pain shortness of breath fever chills nausea vomiting. - Related Data Allergies Allergy/AdvReac Type Severity Reaction Status Date / Time No Known Allergies Allergy Verified 11/02/20 21:33 Home Meds: Home Meds . [No Known Home Meds] 04/04/17 [History] Past Medical History HEENT History: Reports: None Cardiovascular History: Reports: None Respiratory History: Reports: None Gastrointestinal History: Reports: None Genitourinary History: Reports: None Musculoskeletal History: Reports: None Neurological History: Reports: None Psychiatric History: Reports: None Endocrine/Metabolic History: Reports: None Hematologic History: Reports: None Immunologic History: Reports: None Oncologic (Cancer) History: Reports: None Dermatologic History: Reports: None - Infectious Disease History Infectious Disease History: Reports: Chicken Pox - Past Surgical History Head Surgeries/Procedures: Reports: None HEENT Surgical History: Reports: Myringotomy w Tube(s), Other (See Below) Other HEENT Surgeries/Procedures: wisdom tooth extraction Cardiovascular Surgical History: Reports: None Respiratory Surgical History: Reports: None GI Surgical History: Reports: None Male Surgical History: Reports: None Musculoskeletal Surgical History: Reports: Other (See Below) Other Musculoskeletal Surgeries/Procedures:: surgery to right hand Social & Family History - Family History Family Medical History: No Pertinent Family History - Tobacco Use Tobacco Use Status *Q: Never Tobacco User - Caffeine Use Caffeine Use: Reports: None - Recreational Drug Use Recreational Drug Use: No ED ROS GENERAL - Review of Systems Review Of Systems: See Below Constitutional: Reports: No Symptoms HEENT: Reports: No Symptoms Respiratory: Reports: No Symptoms Cardiovascular: Reports: Palpitations Endocrine: Reports: No Symptoms GI/Abdominal: Reports: No Symptoms : Reports: No Symptoms Musculoskeletal: Reports: No Symptoms Skin: Reports: No Symptoms Neurological: Reports: No Symptoms Psychiatric: Reports: No Symptoms Hematologic/Lymphatic: Reports: No Symptoms Immunologic: Reports: No Symptoms ED EXAM, GENERAL - Physical Exam Exam: See Below Exam Limited By: No Limitations General Appearance: Alert, WD/WN, No Apparent Distress Eye Exam: Bilateral Eye: EOMI, PERRL Respiratory/Chest: No Respiratory Distress, Lungs Clear Cardiovascular: Normal Peripheral Pulses, Regular Rate, Rhythm GI/Abdominal: Normal Bowel Sounds, Soft, Non-Tender Extremities: Normal Inspection Neurological: Alert, Oriented, CN II-XII Intact #1 Interpretation EKG Date: 11/02/20 Time: 22:01 Rhythm: Other (sinus prosper) Rate (Beats/Min): 58 ST-T: Normal Course - Vital Signs Last Recorded V/S: Last Vital Signs Temp 97.9 F 11/02/20 22:54 Pulse 57 L 11/02/20 22:54 Resp 16 11/02/20 22:54 BP 100/63 11/02/20 22:54 Pulse Ox 96 11/02/20 22:54 - Orders/Labs/Meds Orders: Active Orders 24 hr Category Date Time Status EKG 12 Lead [EKG Documentation Completion] [RC] STAT Care 11/02/20 21:48 Active Labs: Laboratory Tests 11/02/20 11/02/20 Range/Units 22:06 22:06 WBC 6.51 (4.0-11.0) K/uL RBC 5.25 (4.50-5.90) M/uL Hgb 15.7 (13.0-17.0) g/dL Hct 45.4 (38.0-50.0) % MCV 86.5 (80.0-98.0) fL MCH 29.9 (27.0-32.0) pg MCHC 34.6 (31.0-37.0) g/dL RDW Std Deviation 39.7 (28.0-62.0) fl RDW Coeff of Naomi 12 (11.0-15.0) % Plt Count 179 (150-400) K/uL MPV 10.70 (7.40-12.00) fL Neut % (Auto) 64.2 (48.0-80.0) % Lymph % (Auto) 23.8 (16.0-40.0) % [place] % (Auto) 8.3 (0.0-15.0) % Eos % (Auto) 3.4 (0.0-7.0) % Baso % (Auto) 0.3 (0.0-1.5) % Neut # (Auto) 4.2 (1.4-5.7) K/uL Lymph # (Auto) 1.6 (0.6-2.4) K/uL [place] # (Auto) 0.5 (0.0-0.8) K/uL Eos # (Auto) 0.2 (0.0-0.7) K/uL Baso # (Auto) 0.0 (0.0-0.1) K/uL Nucleated RBC % 0.0 /100WBC Nucleated RBCs # 0 K/uL Sodium 139 (136-148) mmol/L Potassium 4.0 (3.5-5.1) mmol/L Chloride 104 (98-107) mmol/L Carbon Dioxide 28.0 (21.0-32.0) mmol/L BUN 17 (7.0-18.0) mg/dL Creatinine 1.0 (0.8-1.3) mg/dL Est Cr Clr Drug Dosing 125.40 mL/min Estimated GFR (MDRD) > 60.0 ml/min Glucose 100 (74-106) mg/dL Calcium 8.6 (8.5-10.1) mg/dL Total Bilirubin 0.7 (0.2-1.0) mg/dL AST 35 (15-37) IU/L ALT 36 (14-63) IU/L Alkaline Phosphatase 81 (46-116) U/L Creatine Kinase 418 H (26-308) U/L Troponin I < 0.050 (0.000-0.056) ng/mL Total Protein 6.9 (6.4-8.2) g/dL Albumin 4.2 (3.4-5.0) g/dL Globulin 2.7 (2.6-4.0) g/dL Albumin/Globulin Ratio 1.6 (0.9-1.6) Departure - Departure Time of Disposition: 23:02 Disposition: Home, Self-Care 01 Condition: Good Clinical Impression: Lightheadedness - Discharge Information *PRESCRIPTION DRUG MONITORING PROGRAM REVIEWED*: Not Applicable *COPY OF PRESCRIPTION DRUG MONITORING REPORT IN PATIENT KATHLEEN: Not Applicable Instructions: Dizziness, [id number] Referrals: PCP,None [Primary Care Provider] - Forms: ED Department Discharge Additional Instructions: The following information is given to patients seen in the emergency department who are being discharged to home. This information is to outline your options for follow-up care. We provide all patients seen in our emergency department with a follow-up referral. The need for follow-up, as well as the timing and circumstances, are variable depending upon the specifics of your emergency department visit. If you don't have a primary care physician on staff, we will provide you with a referral. We always advise you to contact your personal physician following an emergency department visit to inform them of the circumstance of the visit and for follow-up with them and/or the need for any referrals to a consulting specialist. The emergency department will also refer you to a specialist when appropriate. This referral assures that you have the opportunity for follow-up care with a specialist. All of these measure are taken in an effort to provide you with optimal care, which includes your follow-up. Under all circumstances we always encourage you to contact your private physician who remains a resource for coordinating your care. When calling for follow-up care, please make the office aware that this follow-up is from your recent emergency room visit. If for any reason you are refused follow-up, please contact the [facility] Emergency Department at and asked to speak to the emergency department charge nurse. Please follow up with your primary care physician. If you do not have a primary care physician, see below: [facility] [address] [place] [id number] [facility] [address] [place] [id number] You were seen today for feelings of feeling like a flushed feeling from her chest up to her head and turned bright red. We did EKG labs that were all within normal limits. We recommend to continue to follow-up to primary care physician for further care. Sepsis Event Note (ED) - Evaluation Sepsis Screening Result: No Definite Risk - Focused Exam Vital Signs: Vital Signs Temp Pulse Resp BP Pulse Ox 11/02/20 22:54 97.9 F 57 L 16 100/63 96 11/02/20 21:33 98.8 F 73 19 125/76 99 - My Orders Last 24 Hours: My Active Orders 11/02/20 21:48 EKG 12 Lead [EKG Documentation Completion] [RC] STAT - Assessment/Plan Last 24 Hours: My Active Orders 11/02/20 21:48 EKG 12 Lead [EKG Documentation Completion] [RC] STAT Plan: Patient is a 25-year-old male presents today for multiple complaints of a sensation that he was feeling flushed from his chest of his head. Has no noticeable redness on exam. He denies any chest pain currently will obtain EKG labs and reassess.
[2020-11-02 22:40] LABS: BLOOD UREA NITROGEN,BUN 17 mg/dL (7.0-18.0); CHLORIDE,CL 104 mmol/L (98-107); GLUCOSE RANDOM 100 mg/dL (74-106); SODIUM,NA 139 mmol/L (136-148)
--- NOTE | 2020-11-02 22:47 | CR ---
Indication: Chest tightness Technique: Chest 2 views Comparison: Chest x-ray 04/04/2017 Findings/Impression: Cardiovascular and mediastinum: Heart size and vasculature are normal in caliber and appearance. Mediastinum is within normal limits. Lungs and pleural spaces: Lungs are clear. No sign of infiltrate or mass. No sign of pleural effusion. No pneumothorax. Bones and soft tissues: No significant findings. Dictated by Ari Shelton MD @ 11/02/2020 10:46:[address] Ari Shelton @ Nov 02 2020 10:46PM
[2020-11-03 00:07] VITALS: BP 103/53; PULSE 59
== END 2020-11-02 23:19 | disposition home or self-care (01) ==
LOC: MW.ED 20:33
DX: R42 Dizziness and giddiness (principal)
CPT/HCPCS: 36415; 71046; 71046-26; 80053; 82550; 84484; 85025; 93005; 99284-25

== ENCOUNTER 2021-01-04 09:55 | Emergency (ER) | payer BC ==
--- NOTE | 2021-01-04 10:27 | EDM.PDOC ---
<Matt Lopez - Last Filed: 01/04/21 10:49> ED HPI GENERAL MEDICAL PROBLEM - General Stated Complaint: PAIN IN GROIN OR PENIS Time Seen by Provider: 01/04/21 10:26 - Related Data Allergies Allergy/AdvReac Type Severity Reaction Status Date / Time No Known Allergies Allergy Verified 01/04/21 10:23 Home Meds: Home Meds Buprenorphine HCl/Naloxone HCl [Buprenorphine-Nalox 2-0.5MG Tb] 1 tab SL DAILY 01/04/21 [History] Levofloxacin 500 mg PO BID 10 Days #20 tablet 01/04/21 [Rx] Testosterone Cypionate [Depo-Testosterone] 100 mg IM WEEKLY 01/04/21 [History] Course - Vital Signs Text/Narrative:: 10:45 AM I went into detorsed the testicle but he is not swollen, the affected side on the left hangs lower than the right in normal position for him, and he has intermittent symptoms for years with this ongoing episode being more persistent and intermittent for 2 days. The patient does not appear to have an acute torsion as there is no swelling discoloration and tenderness is minimal and isolated today around the epididymis. Departure - Departure Disposition: Home, Self-Care 01 Clinical Impression: Epididymitis, left - Discharge Information Prescriptions: Levofloxacin 500 mg PO BID 10 Days #20 tablet Instructions: Epididymitis Referrals: PCP,None [Primary Care Provider] - Forms: ED Department Discharge Additional Instructions: The following information is given to patients seen in the emergency department who are being discharged to home. This information is to outline your options for follow-up care. We provide all patients seen in our emergency department with a follow-up referral. The need for follow-up, as well as the timing and circumstances, are variable depending upon the specifics of your emergency department visit. If you don't have a primary care physician on staff, we will provide you with a referral. We always advise you to contact your personal physician following an emergency department visit to inform them of the circumstance of the visit and for follow-up with them and/or the need for any referrals to a consulting specialist. The emergency department will also refer you to a specialist when appropriate. This referral assures that you have the opportunity for follow-up care with a specialist. All of these measure are taken in an effort to provide you with optimal care, which includes your follow-up. Under all circumstances we always encourage you to contact your private physician who remains a resource for coordinating your care. When calling for follow-up care, please make the office aware that this follow-up is from your recent emergency room visit. If for any reason you are refused follow-up, please contact the [facility] Emergency Department at and asked to speak to the emergency department charge nurse. [place] [address] [place] [address] [address] floor [phone] Plan: 1. You were evaluated today on an emergent basis. Your left testicle pain was evaluated with an examination and an ultrasound. Your ultrasound IMPRESSION: 1. No definite intratesticular mass. Normal blood flow bilaterally within the testes. Question subtle hyperechoic area along the left lateral testis. To be conservative recommend follow-up imaging in 4-6 weeks. Have included the number for a urologist in [place] in your discharge instructions. As we discussed you need to call and make a follow-up appointment with them. I will treat you with Levofloxacin 500mg by mouth twice daily for 10 days as you state you are low risk for an STD. If you were to have discoloration or increased pain of the testicle please return to the emergency department. 2. You can alternate Tylenol and ibuprofen as needed for pain and fever management. 3. We encourage you to follow up with your primary care provider and/or recommended specialist in the next few days for re-evaluation and further c are/management. 4. If your symptoms should worsen, new symptoms develop or any of the signs and symptoms we discussed should arise please return to the emergency room or call 911 (if needed). <Tonie Rocha - Last Filed: 01/04/21 13:48> ED HPI GENERAL MEDICAL PROBLEM - General Source of Information: Reports: Patient History Limitations: Reports: No Limitations - History of Present Illness INITIAL COMMENTS - FREE TEXT/NARRATIVE: HISTORY AND PHYSICAL: History of present illness: Patient is a 25-year-old male who presents to the emergency department with complaints of left testicle pain that has been intermittent for the last 2 days. The patient states that the pain started approximately 2 hours after ejaculating. The patient states that he has been intermittent and last night he was able to get rest when lying down, or, this morning upon awaking the pain has become increasingly worse. The patient has had intermittent testicular pain for several years. 6 months ago he started on testosterone HRT. He states that he has intermittent pain in alternating testicles without any notable pattern. The patient does not appreciate any modifiers. Patient denies any new sexual partners. The patient denies any fever, chills, headache, change in vision, syncope or near syncope. Denies any chest pain, back pain, shortness of breath or cough. Denies any abdominal pain, nausea, vomiting, diarrhea, constipation or dysuria. Has not noted any blood in urine or stool. Patient has been eating and drinking appropriately. Review of systems: As per history of present illness and below otherwise all systems reviewed and negative. Past medical history: As per history of present illness and as reviewed below otherwise noncontributory. Surgical history: As per history of present illness and as reviewed below otherwise nonco ntributory. Social history: See social history for further information Family history: As per history of present illness and as reviewed below otherwise noncontributory. Physical exam: General: Well developed and well nourished. Alert and orientated x 3. Nontoxic in appearance and in no acute distress. Vital signs are stable and have been reviewed by me. Nursing notes were reviewed. HEENT: Atraumatic, normocephalic, pupils equal and reactive bilaterally, negative for conjunctival pallor or scleral icterus, mucous membranes moist, TMs normal bilaterally, throat clear, neck supple, nontender, trachea midline. No drooling or trismus noted. No meningeal signs. No hot potato voice noted. Lungs: Clear to auscultation bilaterally. No wheezes, rales, or rhonchi. Chest nontender. Normal work of breathing, no accessory muscles used. Heart: S1S2, regular rate and rhythm without overt murmur, gallops, or rubs. No JVD. No peripheral edema Abdomen: Soft, nondistended, nontender. Normoactive bowel sounds. Negative for masses or costovertebral tenderness. Pelvis: Stable nontender. Genitourinary/Rectal: Left stable appears enlarged compared to the right and is extremely tender upon palpation posterior. Skin: Intact, warm, dry. No lesions or rashes noted. Hematologic: No petechiae or purpra. Mucosa appropriate color and normal nail bed color and refill. Extremities: Atraumatic, moves all extremities per self without difficulty or deficits, negative for cords or calf pain. Neurovascular unremarkable. Neuro: Awake, alert, oriented. Cranial nerves II through XII unremarkable. Cerebellum unremarkable. Motor and sensory unremarkable throughout. Exam nonfocal. Psychiatric: Mood and affect are appropriate. Normal thought process. Answering questions appropriately. Notes: *This patient was seen and evaluated during the 2019 SARS-CoV-2 novel coronavirus pandemic period. Community viral transmission is ongoing at time of this encounter and the emergency department is operating under pandemic response procedures. As stated above the patient is a 25-year-old who comes into the emergency department with complaints of left testicle pain that has been increasing and. I consulted with Dr. Lopez regarding treatment. I have ordered an ultrasound, urinalysis, and urine chlamydia gonorrhea. Dr. Lopez examined the patient. Please see his notes. The patient has agreed to Toradol 60 mg IM for pain control. When the nurses went into administer the Toradol the patient declined stating he was not sure his insurance would pay for. The patient also declined having a urinalysis and the urine chlamydia and gonorrhea. The patient states that he has not had unprotected sex in over 3 years and has not had intercourse for over a year. The patient would be considered low risk for STD. The ultrasound IMPRESSION: 1. No definite intratesticular mass. Normal blood flow bilaterally within the testes. Question subtle hyperechoic area along the left lateral testis. To be conservative recommend follow-up imaging in 4-6 weeks. I informed the patient of the results and he is agreeable to follow-up with urologist in [place]. I will treat the patient's epididymitis with Levofloxacin 500mg by mouth twice daily for 10 days as is low risk for an STD. The patient is agreeable with this discharge plan. I have talked with the patient about today's findings, in addition to providing specific details for plan of care. Reassessment at the time of disposition demonstrates that the patient is in no acute distress. The patient is stable for discharge, counseling was provided and we discussed in great detail signs and symptoms that would prompt them to return to the Emergency Department. Medication, follow up and supportive care measures were reviewed and discussed. Voices understanding and is agreeable to plan of care. Denies any further questions or concerns at this time. Diagnostics: Testicular ultrasound, urinalysis, chlamydia and gonorrhea urine Therapeutics: Toradol 60 mg IM Prescription:Levofloxacin 500mg by mouth twice daily for 10 days as you state you are low risk for an STD. Impression: Left epididymitis Plan: 1. You were evaluated today on an emergent basis. Your left testicle pain was evaluated with an examination and an ultrasound. Your ultrasound IMPRESSION: 1. No definite intratesticular mass. Normal blood flow bilaterally within the testes. Question subtle hyperechoic area along the left lateral testis. To be conservative recommend follow-up imaging in 4-6 weeks. Have included the number for a urologist in [place] in your discharge instructions. As we discussed you need to call and make a follow-up appointment with them. I will treat you with Levofloxacin 500mg by mouth twice daily for 10 days as you state you are low risk for an STD. If you were to have discoloration or increased pain of the testicle please return to the emergency department. 2. You can alternate Tylenol and ibuprofen as needed for pain and fever management. 3. We encourage you to follow up with your primary care provider and/or recommended specialist in the next few days for re-evaluation and further care/management. 4. If your symptoms should worsen, new symptoms develop or any of the signs and symptoms we discussed should arise please return to the emergency room or call 911 (if needed). Definitive disposition and diagnosis as appropriate pending reevaluation and review of above. Left Scrotum Pain Score (Numeric/FACES): 7 Past Medical History HEENT History: Reports: None Cardiovascular History: Reports: None Respiratory History: Reports: None Gastrointestinal History: Reports: None Genitourinary History: Reports: None Musculoskeletal History: Reports: None Neurological History: Reports: None Psychiatric History: Reports: None Endocrine/Metabolic History: Reports: None Hematologic History: Reports: None Immunologic History: Reports: None Oncologic (Cancer) History: Reports: None Dermatologic History: Reports: None - Infectious Disease History Infectious Disease History: Reports: Chicken Pox - Past Surgical History Head Surgeries/Procedures: Reports: None HEENT Surgical History: Reports: Myringotomy w Tube(s), Other (See Below) Other HEENT Surgeries/Procedures: wisdom tooth extraction Cardiovascular Surgical History: Reports: None Respiratory Surgical History: Reports: None GI Surgical History: Reports: None Male Surgical History: Reports: None Musculoskeletal Surgical History: Reports: Other (See Below) Other Musculoskeletal Surgeries/Procedures:: surgery to right hand Social & Family History - Family History Family Medical History: No Pertinent Family History - Caffeine Use Caffeine Use: Reports: None ED ROS GENERAL - Review of Systems Review Of Systems: Comprehensive ROS is negative, except as noted in HPI. ED EXAM, GENERAL - Physical Exam Exam: See Below (See dictation) Course - Vital Signs Last Recorded V/S: Last Vital Signs Temp 96.6 F L 01/04/21 11:58 Pulse 60 01/04/21 11:58 Resp 16 01/04/21 11:58 BP 103/59 L 01/04/21 11:58 Pulse Ox 98 01/04/21 11:58 - Orders/Labs/Meds Orders: Active Orders 24 hr Category Date Time Status Scrotal Duplex Ltd [US] Routine Exams 01/04/21 10:52 Taken CHLAMYDIA AND GONORRHEA BY TMA Stat Lab 01/04/21 10:38 Ordered UA W/FALGUNI RFLX IF INDICATED [URIN] Stat Lab 01/04/21 10:37 Ordered Meds: Medications Discontinued Medications Generic Name Dose Route Start Last Admin Trade Name Freq PRN Reason Stop Dose Admin Ketorolac Tromethamine 60 mg 01/04/21 10:46 Ketorolac 60 Mg/2 Ml Sdv IM 01/04/21 10:47 ONETIME ONE Departure - Departure Time of Disposition: 13:11 Condition: Good - Discharge Information *PRESCRIPTION DRUG MONITORING PROGRAM REVIEWED*: Not Applicable *COPY OF PRESCRIPTION DRUG MONITORING REPORT IN PATIENT KATHLEEN: Not Applicable Sepsis Event Note (ED) - Focused Exam Vital Signs: Vital Signs Temp Pulse Resp BP Pulse Ox 01/04/21 11:58 96.6 F L 60 16 103/59 L 98 01/04/21 10:25 96.3 F L 82 16 124/67 98 - My Orders Last 24 Hours: My Active Orders 01/04/21 10:37 UA W/FALGUNI RFLX IF INDICATED [URIN] Stat 01/04/21 10:38 CHLAMYDIA AND GONORRHEA BY TMA Stat - Assessment/Plan Last 24 Hours: My Active Orders 01/04/21 10:37 UA W/FALGUNI RFLX IF INDICATED [URIN] Stat 01/04/21 10:38 CHLAMYDIA AND GONORRHEA BY TMA Stat
[2021-01-04] MEDS ORDERED: Ketorolac 60 MG/2 ML SDV IM ONE (10:46)
--- NOTE | 2021-01-04 12:43 | US ---
CLINICAL HISTORY: Left pain for 2 days TECHNIQUE: Corley scale imaging was performed of the scrotum. In addition color Doppler and spectral Doppler analysis was performed of the testes. FINDINGS: The testes demonstrate normal arterial and venous blood flow on color Doppler and spectral Doppler analysis. The right testis measures 4 x 2.4 x 1.8 cm in size and the left testis measures 4 x 2.5 x 2.1 cm. No obvious discrete mass. Question subtle hyperechoic area in the left lateral test dose which is extremely subtle. The epididymis appears normal bilaterally. There is no evidence of a hydrocele or varicocele. IMPRESSION: 1. No definite intratesticular mass. Normal blood flow bilaterally within the testes. Question subtle hyperechoic area along the left lateral testis. To be conservative recommend follow-up imaging in 4-6 weeks. Dictated by Kelly Castro MD @ 01/04/2021 12:41:57 PM (Electronically Signed)
[2021-01-04 20:27] VITALS: BP 98/58; PULSE 71
--- NOTE | 2021-01-06 12:21 | US ---
EXAM DATE: 01/04/21 PATIENT'S AGE: 25 Patient: MARTINA ANGEL [facility] Study: US-Testicle -01/04/2021 12:12:08 PM Ordering Physician: Josefina Schilling Final Report: CLINICAL HISTORY: Left pain for 2 days TECHNIQUE: Corley scale imaging was performed of the scrotum. In addition color Doppler and spectral Doppler analysis was performed of the testes. FINDINGS: The testes demonstrate normal arterial and venous blood flow on color Doppler and spectral Doppler analysis. The right testis measures 4 x 2.4 x 1.8 cm in size and the left testis measures 4 x 2.5 x 2.1 cm. No obvious discrete mass. Question subtle hyperechoic area in the left lateral test dose which is extremely subtle. The epididymis appears normal bilaterally. There is no evidence of a hydrocele or varicocele. IMPRESSION: 1. No definite intratesticular mass. Normal blood flow bilaterally within the testes. Question subtle hyperechoic area along the left lateral testis. To be conservative recommend follow-up imaging in 4-6 weeks. Dictated by Kelly Castro MD @ 01/04/2021 12:41:57 PM Signed by: Kelly Castro MD @01/04/2021 12:41:57 PM (Electronic Signature) Report Signed by Proxy. JUSTIN
== END 2021-01-04 13:27 | disposition home or self-care (01) ==
LOC: MW.ED 09:55
DX: N45.1 Epididymitis (principal)
CPT/HCPCS: 76870; 76870-26; 93976; 93976-26; 99284-25

== ENCOUNTER 2022-03-19 15:06 | Emergency (ER) | payer BC ==
[2022-03-19] MEDS ORDERED: Aspirin 81 MG Tab.Chew PO ONE (15:15)
[2022-03-19 15:57] LABS: CARBON DIOXIDE,CO2 29.7 mmol/L (21.0-32.0); POTASSIUM,K 4.2 mmol/L (3.5-5.1)
[2022-03-19 17:23] LABS: CORONAVIRUS COVID-19 NAA NEGATIVE (NEGATIVE); INFLUENZA A NAA NEGATIVE (NEGATIVE); INFLUENZA B NAA NEGATIVE (NEGATIVE); RESPIRATORY SYNCYTIAL VIR NAA NEGATIVE (NEGATIVE)
[2022-03-19 19:12] VITALS: BP 105/60; PULSE 60
== END 2022-03-19 19:10 | disposition home or self-care (01) ==
LOC: MW.ED 15:06
DX: R07.89 Other chest pain (principal); Z20.822 Contact with and (suspected) exposure to COVID-19
CPT/HCPCS: 0241U; 36415; 71045; 80053; 83605; 84484; 85025; 85379; 93005; 99285; A9270

== ENCOUNTER 2022-09-21 11:23 | Emergency (ER) | payer BC ==
[2022-09-21] MEDS ORDERED: Sodium Chloride 0.9% 10 ML Syringe FLUSH PRN (14:08)
[2022-09-21] MEDS ORDERED: Sodium Chloride 0.9% 2.5 ML Syringe FLUSH PRN (14:08)
[2022-09-21] MEDS ORDERED: Sodium Chloride 0.9% 1,000 ML IV STA (14:09)
[2022-09-21 14:17] LABS: APPEARANCE,URINE CLEAR; BILIRUBIN,URINE NEGATIVE (NEGATIVE); COLOR,URINE YELLOW; GLUCOSE,URINE NEGATIVE (NEGATIVE); KETONES,URINE NEGATIVE (NEGATIVE); LEUKOCYTE ESTERASE,URINE NEGATIVE (NEGATIVE); NITRITE,URINE NEGATIVE (NEGATIVE); OCCULT BLOOD,URINE NEGATIVE (NEGATIVE); PH,URINE 6.5 (5.0-8.0); PROTEIN,URINE NEGATIVE (NEGATIVE); UROBILINOGEN,URINE 0.2 EU/dL (<2.0)
[2022-09-21 14:26] LABS: AMPHETAMINES SCREEN, URINE NEGATIVE (CUTOFF=500); BARBITURATE SCREEN,URINE NEGATIVE (CUTOFF=200); BENZODIAZEPINES SCREEN,URINE NEGATIVE (CUTOFF=150); BUPRENORPHINE SCREEN,URINE PRESUMPTIVE POSITIVE (CUTOFF=10); METHADONE SCREEN, URINE NEGATIVE (CUTOFF=200); METHAMPHETAMINES SCREEN, URINE NEGATIVE (CUTOFF=500); OXYCODONE SCREEN,URINE NEGATIVE (CUT0FF=100); PCP SCREEN,URINE NEGATIVE (CUTOFF=25); PROPOXYPHENE SCREEN,URINE NEGATIVE (CUTOFF=300); THC SCREEN,URINE 20 NG/ML NEGATIVE (CUTOFF=50)
[2022-09-21 14:51] LABS: BASOPHILS PERCENT AUTO 0.1 % (0.0-1.5); EOSINOPHILS ABSOLUTE AUTO 0.5 K/uL (0.0-0.7); EOSINOPHILS PERCENT AUTO 6.6 % (0.0-7.0); HEMATOCRIT 46.5 % (38.0-50.0); HEMOGLOBIN 16.1 g/dL (13.0-17.0); LYMPHOCYTES ABSOLUTE AUTO 1.2 K/uL (0.6-2.4); LYMPHOCYTES PERCENT AUTO 17.8 % (16.0-40.0); MEAN CORPUSCULAR HEMOGLOBIN 30.6 pg (27.0-32.0); MEAN CORPUSCULAR HGB CONC 34.6 g/dL (31.0-37.0); MEAN CORPUSCULAR VOLUME 88.4 fL (80.0-98.0); MONOCYTES ABSOLUTE AUTO 0.6 K/uL (0.0-0.8); MONOCYTES PERCENT AUTO 9.2 % (0.0-15.0); NEUTROPHILS ABSOLUTE AUTO 4.6 K/uL (1.4-5.7); NEUTROPHILS PERCENT AUTO 66.3 % (48.0-80.0); NRBC ABSOLUTE 0 K/uL; PLATELET COUNT,PLT 143 K/uL (150-400); RED BLOOD CELL COUNT 5.26 M/uL (4.50-5.90); WHITE BLOOD CELL COUNT,WBC 6.86 K/uL (4.0-11.0)
[2022-09-21 15:28] LABS: A/G RATIO 1.3 (0.9-1.6); ALBUMIN 4.1 g/dL (3.4-5.0); BILIRUBIN TOTAL 0.7 mg/dL (0.2-1.0); CALCIUM 8.6 mg/dL (8.5-10.1); CARBON DIOXIDE,CO2 29.2 mmol/L (21.0-32.0); CREATININE 1.2 mg/dL (0.8-1.3); EST CRCL DRUG DOSING (CG) 99.69 mL/min; POTASSIUM,K 4.4 mmol/L (3.5-5.1); PROTEIN TOTAL,TP 7.2 g/dL (6.4-8.2)
[2022-09-21] MEDS ORDERED: Ondansetron 4 MG Tab.DIS PO STA (15:36)
[2022-09-21 15:41] LABS: CORONAVIRUS COVID-19 NAA NEGATIVE (NEGATIVE); INFLUENZA A NAA NEGATIVE (NEGATIVE); INFLUENZA B NAA NEGATIVE (NEGATIVE)
[2022-09-21 15:51] VITALS: BP 122/78; PULSE 66
== END 2022-09-21 15:50 | disposition home or self-care (01) ==
LOC: MW.ED 11:23
DX: R11.2 Nausea with vomiting, unspecified (principal); F17.210 Nicotine dependence, cigarettes, uncomplicated; Z20.822 Contact with and (suspected) exposure to COVID-19
CPT/HCPCS: 0240U; 36415; 80053; 80305; 81003; 85025; 96360; 99284; J3490; J7030; 99283